=== PATIENT | female | born 1955 | race African-American/Black ===

== ENCOUNTER 2017-02-05 09:23 | Inpatient (IN) | payer MEDICARE, MEDICAID, OTHER ==
[~2017-02-05] VITALS: Ht 154.9 cm; Wt 84.4 kg
[2017-02-05 10:56] LABS: HEMATOCRIT. 36.1 % (36.0-48.0); HEMOGLOBIN. 11.7 g/dL (12.0-16.0); MEAN CORPUSCULAR HEMOGLOBIN 24.9 pg (28.0-32.0); MEAN CORPUSCULAR VOLUME 76.5 fL (81.0-99.0); MEAN PLATELET VOLUME 8.4 fl (7.4-10.4); PLATELET 264 x1000/uL (130-400); RED BLOOD CELL COUNT 4.71 mill/uL (4.2-5.4); RED CELL DISTRIBUTION WIDTH 14.6 % (11.6-14.6)
[2017-02-05 11:03] LABS: INR 1.1; PROTHROMBIN TIME 11.4 sec (9.4-11.6)
[2017-02-05 11:11] LABS: CARBON DIOXIDE 22 mEq/L (21-32); CHLORIDE 106 mEq/L (98-107); TROPONIN I < 0.02 ng/mL (0.00-0.04)
[2017-02-05] MEDS ORDERED: SODIUM CHLORIDE 0.9% 10ML VIAL ONE (11:45)
[2017-02-05] MEDS ORDERED: IOHEXOL-350 100 ML BOTTLE ONE (11:45)
[2017-02-05 13:59] LABS: PLATELET ESTIMATE NORMAL
[2017-02-05] MEDS ORDERED: ONDANSETRON HCL 4MG/2ML VIAL IV PRN ×2 (15:00→19:30)
[2017-02-05] MEDS ORDERED: MORPHINE SULFATE 4 MG/ML CPJ (NOT FOR IM USE) IV PRN (15:00)
[2017-02-05] MEDS ORDERED: METOPROLOL TARTRATE 5MG/5ML VIAL IV ONE (15:00)
[2017-02-05 15:50] LABS: BG BASE EXCESS 0.4 mmol/L (-2.0-2.0); BG CARBOXYHEMOGLOBIN 1.2 % (0.5-1.5); BG DEOXYHEMOGLOBIN 10.8 % (0.0-5.0); BG FRACTION INSPIRED OXYGEN 40; BG METHEMOGLOBIN 0.1 % (0.0-1.5); BG OXYGEN SATURATION 89.1 % (92.0-98.5); BG OXYHEMOGLOBIN 87.9 % (94.0-97.0); BG PCO2 45.9 mmHg (35.0-45.0); BG PH 7.371 (7.350-7.450); BG PO2 58.4 mmHg (75.0-100.0); BG SAMPLE SITE RIGHT BRACHIAL; BG TOTAL HEMOGLOBIN 12.7 g/dL (12.0-18.0); BG VENT MODE NASAL CANNULA
[2017-02-05] MEDS ORDERED: IPRATROPIUM/ALBUTEROL 0.5-3(2.5)MG/3ML NEB HHN PRN (17:30)
[2017-02-05] MEDS ORDERED: METHYLPREDNISOLONE SOD SUCC 125 MG/2 ML VIAL IV NR (17:30)
[2017-02-05] MEDS ORDERED: CEFTRIAXONE 1 G PREMIX 50 ML IV SCH (18:00)
[2017-02-05 18:39] VITALS: BP 123/75
[2017-02-05 19:30] VITALS: BP 123/75
[2017-02-05] MEDS ORDERED: DIPHENHYDRAMINE 50MG/ML VIAL IV PRN (19:30)
[2017-02-05] MEDS ORDERED: DOCUSATE SODIUM 100MG CAPSULE PO PRN (19:30)
[2017-02-05] MEDS ORDERED: LORAZEPAM 2MG/ML CPJ IV PRN (19:30)
[2017-02-05] MEDS ORDERED: IPRATROPIUM/ALBUTEROL 0.5-3(2.5)MG/3ML NEB INH SCH (19:30)
[2017-02-05] MEDS ORDERED: NA PHOS,M-B/NA PHOS,DI-BA ENEMA 118ML PR PRN (19:30)
[2017-02-05] MEDS ORDERED: ACETAMINOPHEN 650MG SUPP PR PRN (19:30)
[2017-02-05] MEDS ORDERED: MAGNESIUM/ALUMINUM HYDROXIDE/SIMETHICONE 30ML UDC PO PRN (19:30)
[2017-02-05] MEDS ORDERED: CLONIDINE 0.1MG TABLET PO PRN (19:30)
[2017-02-05] MEDS ORDERED: IPRATROPIUM/ALBUTEROL 0.5-3(2.5)MG/3ML NEB INH PRN (19:30)
[2017-02-05] MEDS ORDERED: ACETAMINOPHEN 650MG/20.3ML UDC GT PRN (19:30)
[2017-02-05] MEDS ORDERED: ACETAMINOPHEN 325MG TABLET PO PRN (19:30)
[2017-02-05] MEDS: MORPHINE SULFATE 4 MG/ML CPJ (NOT FOR IM USE) IV PRN (19:52)
[2017-02-05 20:00] VITALS: BP 134/69
[2017-02-05] MEDS ORDERED: DEXTROSE 50% WATER 50ML SYRINGE IV PRN (20:15)
[2017-02-05] MEDS ORDERED: POTASSIUM CHLORIDE 20MEQ TABLET SR PO NR (20:15)
[2017-02-05] MEDS: ENOXAPARIN 30MG/0.3ML SYR SUBCUT SCH (20:36)
[2017-02-05] MEDS: BLOOD SUGAR DIAGNOSTIC STRIP TEST SCH (20:37)
[2017-02-05] MEDS: INSULIN LISPRO 100 UNITS/ML SUBCUT SCH (20:52)
[2017-02-05] MEDS: GUAIFENESIN 200MG/10ML SUGAR FREE UDC PO PRN (20:54)
[2017-02-05 22:00] VITALS: BP 122/77
[2017-02-05] MEDS: SODIUM CHLORIDE 0.9% INJ 3ML FLUSH IVF SCH (22:42)
[2017-02-05] MEDS: METHYLPREDNISOLONE SOD SUCC 125 MG/2 ML VIAL IV SCH (22:47)
[2017-02-05] MEDS: HYDROCODONE/ACETAMINOPHEN 5/325MG TABLET PO PRN (22:48)
[2017-02-05 23:21] LABS: TROPONIN I 0.03 ng/mL (0.00-0.04)
[2017-02-06] VITALS (12 sets, daily range): BP systolic 100–147; BP diastolic 45–77
[2017-02-06] MEDS: IPRATROPIUM/ALBUTEROL 0.5-3(2.5)MG/3ML NEB HHN SCH ×5 (01:44→20:39)
[2017-02-06] MEDS: GUAIFENESIN 200MG/10ML SUGAR FREE UDC PO PRN ×3 (02:30→21:23)
[2017-02-06] MEDS: SODIUM CHLORIDE 0.9% INJ 3ML FLUSH IVF SCH ×3 (06:00→22:11)
[2017-02-06] MEDS: METHYLPREDNISOLONE SOD SUCC 125 MG/2 ML VIAL IV SCH ×3 (06:32→22:00)
[2017-02-06 07:01] LABS: CREATINE KINASE 511 IU/L (26-192); TROPONIN I < 0.02 ng/mL (0.00-0.04)
[2017-02-06] MEDS: BLOOD SUGAR DIAGNOSTIC STRIP TEST SCH ×4 (07:30→21:00)
[2017-02-06] MEDS: BUDESONIDE 0.5MG/2ML NEB HHN SCH ×2 (08:26→20:39)
[2017-02-06] MEDS: INSULIN LISPRO 100 UNITS/ML SUBCUT SCH ×4 (08:58→21:22)
[2017-02-06] MEDS: ENOXAPARIN 30MG/0.3ML SYR SUBCUT SCH (09:00)
[2017-02-06 09:28] LABS: GLUCOSE URINE 3+ (NEGATIVE); KETONES URINE TRACE (NEGATIVE); LEUKOCYTE ESTERASE URINE TRACE (NEGATIVE); NITRITE URINE POSITIVE (NEGATIVE); OCCULT BLOOD URINE 1+ (NEGATIVE); PROTEIN URINE 1+ (NEGATIVE); SPECIFIC GRAVITY URINE 1.035 (1.005-1.030); UROBILINOGEN URINE 0.2 E.U./dL (0.2-1.0)
[2017-02-06 09:31] LABS: CLARITY URINE CLOUDY (CLEAR); COLOR URINE YELLOW (YELLOW)
[2017-02-06] MEDS: HYDROCODONE/ACETAMINOPHEN 5/325MG TABLET PO PRN ×2 (10:09→21:25)
[2017-02-06 11:51] LABS: *AMPHETAMINES SCREEN URINE NEGATIVE (NEGATIVE); *BARBITURATES SCREEN URINE NEGATIVE (NEGATIVE); *BENZODIAZEPINES SCREEN URINE NEGATIVE (NEGATIVE); *COCAINE SCREEN URINE NEGATIVE (NEGATIVE); CANNABINOID URINE SCREEN NEGATIVE (NEGATIVE); METHADONE URINE SCREEN NEGATIVE (NEGATIVE); OPIATES URINE SCREEN PRESUMTIVE POSITIVE (NEGATIVE); PHENCYCLIDINE URINE SCREEN NEGATIVE (NEGATIVE)
[2017-02-06 13:35] LABS: HEMATOCRIT. 35.5 % (36.0-48.0); HEMOGLOBIN. 11.6 g/dL (12.0-16.0); MEAN CORPUSCULAR HEMOGLOBIN 25.3 pg (28.0-32.0); MEAN CORPUSCULAR VOLUME 77.4 fL (81.0-99.0); MEAN PLATELET VOLUME 8.9 fl (7.4-10.4); PLATELET 235 x1000/uL (130-400); RED BLOOD CELL COUNT 4.58 mill/uL (4.2-5.4); RED CELL DISTRIBUTION WIDTH 14.7 % (11.6-14.6)
[2017-02-06 14:18] LABS: PLATELET ESTIMATE NORMAL
[2017-02-06 14:22] LABS: CARBON DIOXIDE 25 mEq/L (21-32); CHLORIDE 101 mEq/L (98-107)
[2017-02-06] MEDS: AZITHROMYCIN 500 MG in DEXT 5% WATER 250 ML IV SCH (16:00)
[2017-02-06] MEDS: CEFTRIAXONE 1 G PREMIX 50 ML IV SCH (20:24)
[2017-02-06] MEDS: INSULIN DETEMIR UD 100 UNITS/ML SYR SUBCUT SCH (21:23)
[2017-02-07] VITALS (14 sets, daily range): BP systolic 108–146; BP diastolic 54–93
[2017-02-07] MEDS: IPRATROPIUM/ALBUTEROL 0.5-3(2.5)MG/3ML NEB HHN SCH ×4 (01:20→20:03)
[2017-02-07] MEDS: GUAIFENESIN 200MG/10ML SUGAR FREE UDC PO PRN ×4 (02:07→17:57)
[2017-02-07] MEDS: METHYLPREDNISOLONE SOD SUCC 125 MG/2 ML VIAL IV SCH (05:07)
[2017-02-07] MEDS: SODIUM CHLORIDE 0.9% INJ 3ML FLUSH IVF SCH ×3 (05:07→20:43)
[2017-02-07] MEDS: BLOOD SUGAR DIAGNOSTIC STRIP TEST SCH ×4 (07:30→20:43)
[2017-02-07] MEDS: INSULIN LISPRO 100 UNITS/ML SUBCUT SCH ×4 (07:39→20:43)
[2017-02-07] MEDS: BUDESONIDE 0.5MG/2ML NEB HHN SCH ×2 (09:12→20:03)
[2017-02-07] MEDS: ENOXAPARIN 40MG/0.4ML SYR SUBCUT SCH (09:25)
[2017-02-07] MEDS: HYDROCODONE/ACETAMINOPHEN 5/325MG TABLET PO PRN (09:47)
[2017-02-07] MEDS ORDERED: P20 PO (12:32)
[2017-02-07] MEDS ORDERED: AZIT500T3 PO (12:32)
[2017-02-07] MEDS ORDERED: ALBU6.7H IH (12:33)
[2017-02-07] MEDS ORDERED: PULM50 IH (12:34)
[2017-02-07] MEDS: PREDNISONE 20MG TABLET PO SCH (12:47)
[2017-02-07] MEDS: AZITHROMYCIN 500 MG in DEXT 5% WATER 250 ML IV SCH (14:36)
[2017-02-07] MEDS: CEFTRIAXONE 1 G PREMIX 50 ML IV SCH (20:45)
[2017-02-07] MEDS: MORPHINE SULFATE 4 MG/ML CPJ (NOT FOR IM USE) IV PRN (21:56)
[2017-02-07] MEDS: INSULIN DETEMIR UD 100 UNITS/ML SYR SUBCUT SCH (21:59)
[2017-02-08] VITALS (10 sets, daily range): BP systolic 109–144; BP diastolic 59–78
[2017-02-08] MEDS: IPRATROPIUM/ALBUTEROL 0.5-3(2.5)MG/3ML NEB HHN SCH ×4 (02:17→21:15)
[2017-02-08] MEDS: GUAIFENESIN 200MG/10ML SUGAR FREE UDC PO PRN ×2 (03:05→18:05)
[2017-02-08] MEDS: SODIUM CHLORIDE 0.9% INJ 3ML FLUSH IVF SCH ×3 (05:54→21:19)
[2017-02-08] MEDS: BLOOD SUGAR DIAGNOSTIC STRIP TEST SCH ×4 (07:27→21:17)
[2017-02-08] MEDS: ENOXAPARIN 40MG/0.4ML SYR SUBCUT SCH (08:10)
[2017-02-08] MEDS: INSULIN LISPRO 100 UNITS/ML SUBCUT SCH ×4 (08:11→21:19)
[2017-02-08] MEDS: AZITHROMYCIN 500 MG TABLET PO SCH (08:13)
[2017-02-08] MEDS: PREDNISONE 20MG TABLET PO SCH (08:13)
[2017-02-08] MEDS: BUDESONIDE 0.5MG/2ML NEB HHN SCH ×2 (08:30→21:15)
[2017-02-08 09:34] LABS: BASOPHILS % 0.4 % (0.0-2.0); EOSINOPHILS % 0.1 % (0.0-5.0); HEMATOCRIT. 32.6 % (36.0-48.0); HEMOGLOBIN. 10.6 g/dL (12.0-16.0); LYMPHOCYTES % 22.8 % (20.0-50.0); MEAN CORPUSCULAR HEMOGLOBIN 24.7 pg (28.0-32.0); MEAN CORPUSCULAR VOLUME 76.2 fL (81.0-99.0); MEAN PLATELET VOLUME 8.7 fl (7.4-10.4); MONOCYTES % 4.1 % (2.0-8.0); NEUTROPHILS % 72.6 % (40.0-76.0); PLATELET 280 x1000/uL (130-400); RED BLOOD CELL COUNT 4.27 mill/uL (4.2-5.4); RED CELL DISTRIBUTION WIDTH 14.5 % (11.6-14.6)
[2017-02-08 09:45] LABS: CARBON DIOXIDE 30 mEq/L (21-32); CHLORIDE 103 mEq/L (98-107)
[2017-02-08] MEDS: HYDROCODONE/ACETAMINOPHEN 5/325MG TABLET PO PRN (11:39)
[2017-02-08] MEDS: FAMOTIDINE 20MG TABLET PO SCH (21:15)
[2017-02-08] MEDS: LORATADINE 10MG TABLET PO SCH (21:16)
[2017-02-08] MEDS: CEFTRIAXONE 1 G PREMIX 50 ML IV SCH (21:16)
[2017-02-08] MEDS: INSULIN DETEMIR UD 100 UNITS/ML SYR SUBCUT SCH (21:19)
[2017-02-08 21:31] LABS: CREATINE KINASE 276 IU/L (26-192); CREATINE KINASE MB FRACTION 0.9 ng/mL (0.5-3.6); TROPONIN I < 0.02 ng/mL (0.00-0.04)
[2017-02-08 21:35] LABS: T4 FREE 0.7 ng/dL (0.76-1.46)
[2017-02-09] VITALS (7 sets, daily range): BP systolic 111–150; BP diastolic 65–78
[2017-02-09 01:08] LABS: CREATINE KINASE 264 IU/L (26-192); CREATINE KINASE MB FRACTION 0.7 ng/mL (0.5-3.6); TROPONIN I < 0.02 ng/mL (0.00-0.04)
[2017-02-09] MEDS: IPRATROPIUM/ALBUTEROL 0.5-3(2.5)MG/3ML NEB HHN SCH ×4 (02:31→21:00)
[2017-02-09 04:17] LABS: DRVVT LA 43.4 sec (0.0-47.0); LUPUS ANTICOAG INTERPRETATION Comment: (.); PTT-LA 39.4 sec (0.0-51.9)
[2017-02-09] MEDS: SODIUM CHLORIDE 0.9% INJ 3ML FLUSH IVF SCH ×3 (06:10→22:00)
[2017-02-09 07:00] LABS: CREATINE KINASE 216 IU/L (26-192); CREATINE KINASE MB FRACTION 0.8 ng/mL (0.5-3.6); TROPONIN I < 0.02 ng/mL (0.00-0.04)
[2017-02-09] MEDS: BLOOD SUGAR DIAGNOSTIC STRIP TEST SCH ×4 (07:20→21:09)
[2017-02-09] MEDS: INSULIN LISPRO 100 UNITS/ML SUBCUT SCH ×4 (08:00→21:23)
[2017-02-09] MEDS: ENOXAPARIN 30MG/0.3ML SYR SUBCUT SCH ×2 (08:44→21:28)
[2017-02-09] MEDS: AZITHROMYCIN 500 MG TABLET PO SCH (08:45)
[2017-02-09] MEDS: FAMOTIDINE 20MG TABLET PO SCH ×2 (08:45→21:13)
[2017-02-09] MEDS ORDERED: PREDNISONE 20MG TABLET PO SCH (09:00)
[2017-02-09] MEDS: BUDESONIDE 0.5MG/2ML NEB HHN SCH ×2 (09:45→20:59)
[2017-02-09] MEDS: GUAIFENESIN 200MG/10ML SUGAR FREE UDC PO PRN (10:42)
[2017-02-09] MEDS ORDERED: AMLODIPINE 5MG TABLET PO NR (11:00)
[2017-02-09 12:00] LABS: ANTI-MYELOPEROXIDASE AB < 9.0 U/mL (0.0-9.0); ANTI-PROTEINASE 3 ABS < 3.5 U/mL (0.0-3.5); ATYPICAL P-ANCA <1:20 titer (Neg:<1:20); CYTOPLASMIC C-ANCA <1:20 titer (Neg:<1:20); PERINUCLEAR P-ANCA <1:20 titer (Neg:<1:20)
[2017-02-09] MEDS: SILDENAFIL CITRATE 20MG TABLET PO SCH ×2 (14:46→21:14)
[2017-02-09] MEDS: HYDROCODONE/ACETAMINOPHEN 5/325MG TABLET PO PRN (16:00)
[2017-02-09] MEDS: PREDNISONE 20MG TABLET PO SCH (16:04)
[2017-02-09] MEDS ORDERED: GUAIFENESIN 200MG/10ML SUGAR FREE UDC PO PRN (16:30)
[2017-02-09] MEDS: AMLODIPINE 5MG TABLET PO SCH (21:13)
[2017-02-09] MEDS: INSULIN DETEMIR UD 100 UNITS/ML SYR SUBCUT SCH (21:23)
[2017-02-09] MEDS: LORATADINE 10MG TABLET PO SCH (21:27)
[2017-02-09] MEDS: CEFTRIAXONE 1 G PREMIX 50 ML IV SCH (21:30)
[2017-02-10] VITALS (7 sets, daily range): BP systolic 109–152; BP diastolic 65–80
[2017-02-10] MEDS: IPRATROPIUM/ALBUTEROL 0.5-3(2.5)MG/3ML NEB HHN SCH ×5 (04:26→21:03)
[2017-02-10] MEDS: SILDENAFIL CITRATE 20MG TABLET PO SCH ×3 (05:30→21:39)
[2017-02-10] MEDS: SODIUM CHLORIDE 0.9% INJ 3ML FLUSH IVF SCH ×3 (05:30→22:04)
[2017-02-10] MEDS: BLOOD SUGAR DIAGNOSTIC STRIP TEST SCH ×4 (07:50→21:45)
[2017-02-10] MEDS ORDERED: REV20 PO (08:41)
[2017-02-10] MEDS: FAMOTIDINE 20MG TABLET PO SCH ×2 (08:51→21:39)
[2017-02-10] MEDS: PREDNISONE 20MG TABLET PO SCH (08:51)
[2017-02-10] MEDS: AMLODIPINE 5MG TABLET PO SCH ×2 (08:51→21:40)
[2017-02-10] MEDS: ENOXAPARIN 30MG/0.3ML SYR SUBCUT SCH ×2 (08:51→21:38)
[2017-02-10] MEDS: AZITHROMYCIN 500 MG TABLET PO SCH (08:51)
[2017-02-10] MEDS: INSULIN LISPRO 100 UNITS/ML SUBCUT SCH ×4 (08:52→22:02)
[2017-02-10] MEDS: BUDESONIDE 0.5MG/2ML NEB HHN SCH ×2 (09:06→21:03)
[2017-02-10 09:24] LABS: BASOPHILS % 1.1 % (0.0-2.0); EOSINOPHILS % 0.1 % (0.0-5.0); HEMATOCRIT. 34.6 % (36.0-48.0); HEMOGLOBIN. 11.2 g/dL (12.0-16.0); LYMPHOCYTES % 25.8 % (20.0-50.0); MEAN CORPUSCULAR HEMOGLOBIN 24.8 pg (28.0-32.0); MEAN CORPUSCULAR VOLUME 76.8 fL (81.0-99.0); MEAN PLATELET VOLUME 8.1 fl (7.4-10.4); MONOCYTES % 4.4 % (2.0-8.0); NEUTROPHILS % 68.6 % (40.0-76.0); PLATELET 311 x1000/uL (130-400); RED CELL DISTRIBUTION WIDTH 14.1 % (11.6-14.6)
[2017-02-10 09:42] LABS: CARBON DIOXIDE 30 mEq/L (21-32); CHLORIDE 101 mEq/L (98-107)
[2017-02-10 15:40] LABS: BG BASE EXCESS 5.1 mmol/L (-2.0-2.0); BG CARBOXYHEMOGLOBIN 0.7 % (0.5-1.5); BG DEOXYHEMOGLOBIN 6.1 % (0.0-5.0); BG FRACTION INSPIRED OXYGEN 21; BG HCO3 ACT 29.6 mmol/L (22.0-26.0); BG METHEMOGLOBIN 0.1 % (0.0-1.5); BG OXYGEN SATURATION 93.9 % (92.0-98.5); BG OXYHEMOGLOBIN 93.1 % (94.0-97.0); BG PCO2 42.8 mmHg (35.0-45.0); BG PH 7.457 (7.350-7.450); BG PO2 71.9 mmHg (75.0-100.0); BG SAMPLE SITE RIGHT RADIAL; BG VENT MODE ROOM AIR
[2017-02-10] MEDS: CEFTRIAXONE 1 G PREMIX 50 ML IV SCH (21:41)
[2017-02-10] MEDS: INSULIN DETEMIR UD 100 UNITS/ML SYR SUBCUT SCH (22:01)
[2017-02-10] MEDS: LORATADINE 10MG TABLET PO SCH (22:34)
[2017-02-11] VITALS (9 sets, daily range): BP systolic 117–136; BP diastolic 38–79
[2017-02-11] MEDS: IPRATROPIUM/ALBUTEROL 0.5-3(2.5)MG/3ML NEB HHN SCH ×3 (01:33→13:24)
[2017-02-11] MEDS: SILDENAFIL CITRATE 20MG TABLET PO SCH (06:54)
[2017-02-11] MEDS: SODIUM CHLORIDE 0.9% INJ 3ML FLUSH IVF SCH (06:55)
[2017-02-11] MEDS: BUDESONIDE 0.5MG/2ML NEB HHN SCH (07:28)
[2017-02-11] MEDS: BLOOD SUGAR DIAGNOSTIC STRIP TEST SCH ×2 (08:48→12:45)
[2017-02-11] MEDS: FAMOTIDINE 20MG TABLET PO SCH (08:54)
[2017-02-11] MEDS: AZITHROMYCIN 500 MG TABLET PO SCH (08:54)
[2017-02-11] MEDS: AMLODIPINE 5MG TABLET PO SCH (08:55)
[2017-02-11] MEDS: ENOXAPARIN 30MG/0.3ML SYR SUBCUT SCH (08:55)
[2017-02-11] MEDS ORDERED: PREDNISONE 20MG TABLET PO SCH (09:00)
[2017-02-11] MEDS: INSULIN LISPRO 100 UNITS/ML SUBCUT SCH ×2 (09:17→12:56)
== END 2017-02-11 13:48 | disposition home or self-care (01) | DRG 871 ==
LOC: ER 09:23 → 5EST 15:00 → ENRESERV 16:35
PROVIDERS: ADMIT Family Medicine; ATTEND Family Medicine
DX: A41.9 Sepsis, unspecified organism (principal); J96.01 Acute respiratory failure with hypoxia; J96.02 Acute respiratory failure with hypercapnia; I13.0 Hypertensive heart and chronic kidney disease with heart failure and stage 1 through stage 4 chronic kidney disease, or unspecified chronic kidney disease; J67.9 Hypersensitivity pneumonitis due to unspecified organic dust; N39.0 Urinary tract infection, site not specified; I50.9 Heart failure, unspecified; E11.22 Type 2 diabetes mellitus with diabetic chronic kidney disease; I27.2 Other secondary pulmonary hypertension; N18.9 Chronic kidney disease, unspecified; E66.9 Obesity, unspecified; E87.6 Hypokalemia; E78.5 Hyperlipidemia, unspecified; I34.0 Nonrheumatic mitral (valve) insufficiency; K44.9 Diaphragmatic hernia without obstruction or gangrene; Z68.35 Body mass index [BMI] 35.0-35.9, adult; Z79.899 Other long term (current) drug therapy
CPT/HCPCS: 36415; 36600; 71010; 71275; 80048; 80053; 80061; 80305; 81001; 82375; 82550; 82553; 82805; 82962; 83036; 83520; 83880; 84439; 84443; 84484; 85025; 85379; 85610; 85613; 85651; 85732; 86038; 86140; 86256; 86431; 87086; 93005; 93306; 93970; 94640; 94664; 96374; 96375; 97110; 97116; 97162; 99291; A4216; J0456; J0696; J1200; J1650; J1815; J2270; J2405; J2930; J7030; J7060; J7512; J7620; J7626; Q9967